=== PATIENT | female | born 1965 | race Caucasian/White ===

== ENCOUNTER 2018-04-27 17:30 | Emergency (ER) | payer SELFPAY ==
--- OUTSIDE RECORDS SUMMARY | 2018-04-27 17:32 | XMS REPORT | Clinical Summary ---
:1965 Author Organization [facility] Address [address] [place] [address] Care Team Providers Name Role Phone Asked, No Pcp Primary Care Provider Unavailable Allergies Active Allergy Reactions Severity Noted Date Comments Codeine 06/13/2017 Current Medications Prescription Sig. Disp. Refills Start Date End Date Status amlodipine-benazepril Take 1 capsule by Active (LOTREL 5-10) 5-10 mg per mouth daily. capsule Active Problems Not on file Encounters Date Type Specialty Care Team Description 06/13/2017 Emergency Emergency Medicine Moise David Chest pain as MD Jez manifestation of blood transfusion reaction (Primary Dx) after 04/26/2017 Social History Tobacco Use Types Packs/Day Years Used Date Current Every Day Smoker Cigarettes 1 Alcohol Use Drinks/Week oz/Week Comments Yes social Sex Assigned at Date Recorded Not on file Last Filed Vital Signs Vital Sign Reading Time Taken Blood Pressure 109/56 06/13/2017 5:00 PM CDT Pulse 54 06/13/2017 5:00 PM CDT Temperature 36.6 C (97.9 F) 06/13/2017 5:00 PM CDT Respiratory Rate 15 06/13/2017 5:00 PM CDT Oxygen Saturation 99% 06/13/2017 5:00 PM CDT Inhaled Oxygen Concentration - - Weight - - Height 172.7 cm (5' 8") 06/13/2017 11:18 AM CDT Body Mass Index - - Plan of Treatment Health Maintenance Due Date Last Done Comments CERVICAL CANCER SCREENING 02/28/1988 BREAST CANCER SCREENING 2017 COLON CANCER SCREENING 2017 SHINGRIX VACCINE (#1) 2017 INFLUENZA VACCINE 04/10/2018 Procedures Procedure Name Priority Date/Time Associated Comments Diagnosis TROPONIN Timed 06/13/2017 3:01 Results for this PM CDT procedure are in the results section. XR CHEST 2 VW STAT 06/13/2017 12:20 Results for this PM CDT procedure are in the results section. ESTIMATED GFR STAT 06/13/2017 11:33 Results for this AM CDT procedure are in the results section. B NATRIURETIC PEPTIDE STAT 06/13/2017 11:33 Results for this AM CDT procedure are in the results section. TROPONIN STAT 06/13/2017 11:33 Results for this AM CDT procedure are in the results section. COMPREHENSIVE METABOLIC STAT 06/13/2017 11:33 Results for this PANEL AM CDT procedure are in the results section. PARTIAL THROMBOPLASTIN STAT 06/13/2017 11:33 Results for this TIME (PTT) AM CDT procedure are in the results section. PROTHROMBIN TIME WITH STAT 06/13/2017 11:33 Results for this INR AM CDT procedure are in the results section. HC COMPLETE BLD COUNT STAT 06/13/2017 11:33 Results for this W/AUTO DIFF AM CDT procedure are in the results section. ECG 12-LEAD STAT 06/13/2017 11:20 Results for this AM CDT procedure are in the results section. after 04/26/2017 Results Troponin (06/13/2017 3:01 PM)Only the most recent of2 resultswithin the time period is included. Troponin <0.300 0.000 - 0.300 ng/mL [facility] DEPARTMENT OF Comment: PATHOLOGY AND GENOMIC The diagnostic value of a single normal or non-diagnostic MEDICINE result is questionable.Serial samples at 2-6 hour intervals are required to rule out acute myocardial injury. Specimen Plasma specimen Performing Organization Address City/State/Zipcode Phone Number [facility] DEPARTMENT OF PATHOLOGY AND [address] [facility]. [address] [place] [address] GENOMIC MEDICINE XR Chest 2 Vw (06/13/2017 12:20 PM) Narrative Performed At EXAMINATION:XR CHEST 2 VW [facility] CLINICAL HISTORY:Chest Pain, Chest pain COMPARISON:None. IMPRESSION: Frontal and lateral views reveal a normal cardiomediastinal silhouette. Coarse interstitial markings are noted throughout the lungs although without a consolidative process. Pleural margins are sharp. [facility]-[id number] Procedure Note Hm Interface, Radiology Results Incoming - 06/13/2017 12:27 PM CDT EXAMINATION: XR CHEST 2 VW CLINICAL HISTORY: Chest Pain, Chest pain COMPARISON: None. IMPRESSION: Frontal and lateral views reveal a normal cardiomediastinal silhouette. Coarse interstitial markings are noted throughout the lungs although without a consolidative process. Pleural margins are sharp. [facility]-[id number] Performing Organization Address City/[facility]/Zipcode Phone Number [facility] [place] [address] [place] [address] Estimated GFR (06/13/2017 11:33 AM) GFR Non Af Amer 76 mL/min/1.73 m2 [facility] DEPARTMENT OF PATHOLOGY AND [employer] [facility] MEDICINE GFR Af Amer >90 mL/min/1.73 m2 [facility] DEPARTMENT OF Comment: PATHOLOGY AND [employer] [facility] [employer] Chronic kidney disease: <60 mL/min/1.73m2 MEDICINE Kidney failure: <15 mL/min/1.73m2 The estimated GFR is calculated from the IDMS-traceable Modification of Diet in Renal Disease Equation. The accuracy of the calculation is poor when the creatinine is normal. Calculated values >90 mL/min/1.73m2 are not reported. This equation has not been validated in children (<18 years), women, the elderly (>70 years), or ethnic groups other than Caucasians and Americans. Specimen Plasma specimen Performing Organization Address [facility] [email or web address] Phone Number [facility] PATHOLOGY AND [address] [place] [address]. [address] [place] [address] [facility] Partial thromboplastin time, activated (06/13/2017 11:33 AM) PTT 28.2 23.0 - 36.0 sec [facility] DEPARTMENT OF Comment: PATHOLOGY AND [employer] [facility] [employer] PTT therapeutic range for unfractionated heparin is MEDICINE 66.0-112.0 seconds which corresponds to Anti-Xa 0.3-0.7 U/mL. The reference range has changed starting 02/08/2010 @12:00pm Specimen Blood Performing Organization Address [facility] [[email or web address] Phone Number [facility] PATHOLOGY AND [address] [place], [place] [address]y. [address] [place] [address] [facility] Prothrombin time with INR (06/13/2017 11:33 AM) Prothrombin time 13.0 12.0 - 15.0 sec [facility] DEPARTMENT OF PATHOLOGY AND [employer] [facility] [employer] MEDICINE INR 1.0 [facility] DEPARTMENT OF Comment: PATHOLOGY AND GENOMIC The International Normalized Ratio (INR) is a therapeutic MEDICINE monitoring tool for patients who are stable on oral anticoagulant therapy. An INR of 2.0-3.0 is suggested for deep vein thrombosis/pulmonary embolism. Specimen Blood Performing Organization Address City/[facility]/Zipcode Phone Number [facility] DEPARTMENT OF PATHOLOGY AND [address] [facility] [address] [place] [id number] [employer] [facility] CBC with platelet and differential (06/13/2017 11:33 AM) WBC 10.9 4.5 - 11.0 k/uL [facility] DEPARTMENT OF PATHOLOGY AND GENOMIC MEDICINE RBC 4.83 4.20 - 5.50 M/uL [facility] DEPARTMENT OF PATHOLOGY AND GENOMIC MEDICINE HGB 16.1 14.0 - 18.0 g/dL [facility] DEPARTMENT OF PATHOLOGY AND GENOMIC MEDICINE HCT 45.6 37.0 - 47.0 % [facility] DEPARTMENT OF PATHOLOGY AND GENOMIC MEDICINE MCV 94.4 82.0 - 100.0 fL [facility] DEPARTMENT OF PATHOLOGY AND GENOMIC MEDICINE MCH 33.3 27.0 - 34.0 pg [facility] DEPARTMENT OF PATHOLOGY AND GENOMIC MEDICINE MCHC 35.3 31.0 - 37.0 g/dL [facility] DEPARTMENT OF PATHOLOGY AND GENOMIC MEDICINE RDW - SD 43.4 37.0 - 55.0 fL [facility] DEPARTMENT OF PATHOLOGY AND GENOMIC MEDICINE MPV 9.9 8.8 - 13.2 fL [facility] DEPARTMENT OF PATHOLOGY AND GENOMIC MEDICINE Platelet count 241 150 - 400 K/uL [facility] DEPARTMENT OF PATHOLOGY AND GENOMIC MEDICINE Nucleated RBC 0.00 /100 WBC [facility] DEPARTMENT OF PATHOLOGY AND GENOMIC MEDICINE Neutrophils 56.3 39.0 - 69.0 % [facility] DEPARTMENT OF PATHOLOGY AND GENOMIC MEDICINE Lymphocytes 35.5 25.0 - 45.0 % [facility] DEPARTMENT OF PATHOLOGY AND GENOMIC MEDICINE Monocytes 6.1 0.0 - 10.0 % [facility] DEPARTMENT OF PATHOLOGY AND GENOMIC MEDICINE Eosinophils 1.2 0.0 - 5.0 % [facility] DEPARTMENT OF PATHOLOGY AND GENOMIC MEDICINE Basophils 0.5 0.0 - 1.0 % [facility] DEPARTMENT OF PATHOLOGY AND GENOMIC MEDICINE Immature granulocytes 0.4Comment: "Immature 0.0 - 1.0 % [facility] DEPARTMENT OF granulocytes" PATHOLOGY AND GENOMIC (promyelocytes, MEDICINE myelocytes, metamyelocytes) Specimen Blood Performing Organization Address City/[facility]/Zipcode Phone Number [facility] DEPARTMENT OF PATHOLOGY AND [address] [facility] [address] [place] [address] [employer] [facility] [employer] [facility] B natriuretic peptide (06/13/2017 11:33 AM) BNP 28 0 - 100 pg/mL [facility] DEPARTMENT OF PATHOLOGY AND GENOMIC MEDICINE Specimen Blood Performing Organization Address City/[facility]/Zipcode Phone Number [facility] DEPARTMENT OF PATHOLOGY AND [address] [facility]. [address] [place] [address] [facility] Comprehensive metabolic panel (06/13/2017 11:33 AM) Sodium 138 135 - 148 mEq/L [facility] DEPARTMENT OF PATHOLOGY AND GENOMIC MEDICINE Potassium 4.4 3.5 - 5.0 mEq/L [facility] DEPARTMENT OF PATHOLOGY AND GENOMIC MEDICINE Chloride 100 99 - 109 mEq/L [facility] DEPARTMENT OF PATHOLOGY AND GENOMIC MEDICINE CO2 22 (L) 24 - 31 mEq/L [facility] DEPARTMENT OF PATHOLOGY AND GENOMIC MEDICINE Anion gap 16 (H) 7 - 15 mEq/L [facility] DEPARTMENT OF Comment: PATHOLOGY AND GENOMIC Starting from December , anion gap calculation MEDICINE no longer incorporates potassium. Please note the change. BUN 13 8 - 24 mg/dL [facility] DEPARTMENT OF PATHOLOGY AND GENOMIC MEDICINE Creatinine 0.8 0.5 - 1.5 mg/dL [facility] DEPARTMENT OF PATHOLOGY AND GENOMIC MEDICINE Glucose 98 65 - 99 mg/dL [facility] DEPARTMENT OF PATHOLOGY AND GENOMIC MEDICINE Calcium 9.7 8.6 - 10.6 mg/dL [facility] DEPARTMENT OF PATHOLOGY AND GENOMIC MEDICINE Protein 8.0 6.3 - 8.2 g/dL [facility] DEPARTMENT OF PATHOLOGY AND GENOMIC MEDICINE Albumin 4.8 3.5 - 5.0 g/dL [facility] DEPARTMENT OF PATHOLOGY AND GENOMIC MEDICINE A/G ratio 1.50 0.70 - 3.80 [facility] DEPARTMENT OF PATHOLOGY AND GENOMIC MEDICINE Alkaline phosphatase 102 30 - 115 U/L [facility] DEPARTMENT OF PATHOLOGY AND GENOMIC MEDICINE AST 34 15 - 46 U/L [facility] DEPARTMENT OF PATHOLOGY AND GENOMIC MEDICINE ALT 26 10 - 55 U/L [facility] DEPARTMENT OF PATHOLOGY AND GENOMIC MEDICINE Total bilirubin 0.6 0.2 - 1.2 mg/dL [facility] DEPARTMENT OF PATHOLOGY AND GENOMIC MEDICINE Specimen Plasma specimen Performing Organization Address City/[facility]/Zipcode Phone Number [facility] PATHOLOGY AND [id number] [place], [place] [address]y. [address] [place] [address] [facility] ECG 12 lead (06/13/2017 11:20 AM) Ventricular rate 75 [facility] Atrial rate 75 [facility] IN interval 128 [facility] QRSD interval 82 [facility] QT interval 390 [facility] QTC interval 435 [facility] P axis 1 57 [facility] QRS axis 1 72 [facility] T wave axis 51 [facility] EKG impression Normal sinus rhythm-Normal [facility] ECG-- Performing Organization Address City/State/Zipcode Phone Number [facility] [address] [place] [address] after 04/26/2017 Insurance Payer Benefit Plan / Group Subscriber ID Type Phone Address [employer]ET[employer] AET[employer] PPO OPEN CHOICE xxxxxxxxxx PPO Home: [id number] [place] [id number]
[2018-04-27] MEDS ORDERED: HYDROCODONE/APAP 7.5/325 MG TAB ONE (17:54)
[2018-04-27] MEDS ORDERED: TETANUS & DIPHTHERIA TOX,ADULT 0.5 ML VIAL ONE (17:54)
[2018-04-27] MEDS ORDERED: DOXYCYCLINE 100 MG CAP PO ONE (17:54)
--- NOTE | 2018-04-27 18:40 | EDPHYS ---
Physician Documentation [facility] Name: Eladia Morelos Age: 53 yrs Sex: Female : 1965 Arrival Date: 04/27/2018 Time: 17:34 Bed 14 Private MD: None, None ED Physician Jas Ku HPI: 04/27 17:50 This 53 yrs old Female presents to ER via Ambulatory with complaints of Foot snw Pain. 17:50 The patient presents with pain, that is acute. The complaints affect the medial aspect snw of right foot. Context: [place] resulted from an unknown cause, the patient can fully bear weight, the patient is able to ambulate, Problem is a result from a previous injury: No. Onset: The symptoms/episode began/occurred suddenly, just prior to arrival. Associated signs and symptoms: Pertinent positives: severe burning and pain. Severity of symptoms: At their worst the symptoms were moderate, severe. The patient has not experienced similar symptoms in the past. 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 - Social history:: Smoking status: Patient uses tobacco products, smokes one pack cigarettes per day. - Ebola Screening: : Patient negative for fever greater than or equal to 101.5 degrees Fahrenheit, and additional compatible Ebola Virus Disease symptoms Patient denies exposure to infectious person Patient denies travel to an Ebola-affected area in the 21 days before illness onset No symptoms or risks identified at this time. ROS: 17:48 Constitutional: Negative for fever, chills, and weight loss, Eyes: Negative for injury, snw pain, redness, and discharge, ENT: Negative for injury, pain, and discharge, Neck: Negative for injury, pain, and swelling, Cardiovascular: Negative for chest pain, palpitations, and edema, Respiratory: Negative for shortness of breath, cough, wheezing, and pleuritic chest pain, Abdomen/GI: Negative for abdominal pain, nausea, vomiting, diarrhea, and constipation, Back: Negative for injury and pain, : Negative for injury, bleeding, discharge, and swelling, MS/Extremity: Negative for injury and deformity, Neuro: Negative for headache, weakness, numbness, tingling, and seizure, Psych: Negative for depression, anxiety, suicide ideation, homicidal ideation, and hallucinations. 17:48 Skin: Positive for puncture, swelling, pain to right foot suddenly while walking in the water at the beach. Exam: 17:48 Constitutional: This is a well developed, well nourished patient who is awake, alert, snw and in no acute distress. Head/Face: Normocephalic, atraumatic. Eyes: Pupils equal round and reactive to light, extra-ocular motions intact. Lids and lashes normal. Conjunctiva and sclera are non-icteric and not injected. Cornea within normal limits. Periorbital areas with no swelling, redness, or edema. ENT: Nares patent. No nasal discharge, no septal abnormalities noted. Tympanic membranes are normal and external auditory canals are clear. Oropharynx with no redness, swelling, or masses, exudates, or evidence of obstruction, uvula midline. Mucous membranes moist. Neck: Trachea midline, no thyromegaly or masses palpated, and no cervical lymphadenopathy. Supple, full range of motion without nuchal rigidity, or vertebral point tenderness. No Meningismus. Chest/axilla: Normal chest wall appearance and motion. Nontender with no deformity. No lesions are appreciated. Cardiovascular: Regular rate and rhythm with a normal S1 and S2. No gallops, murmurs, or rubs. Normal PMI, no JVD. No pulse deficits. Respiratory: Lungs have equal breath sounds bilaterally, clear to auscultation and percussion. No rales, rhonchi or wheezes noted. No increased work of breathing, no retractions or nasal flaring. Abdomen/GI: Soft, non-tender, with normal bowel sounds. No distension or tympany. No guarding or rebound. No evidence of tenderness throughout. Back: No spinal tenderness. No costovertebral tenderness. Full range of motion. MS/ Extremity: Pulses equal, no cyanosis. Neurovascular intact. Full, normal range of motion. Neuro: Awake and alert, GCS 15, oriented to person, place, time, and situation. Cranial nerves II-XII grossly intact. Motor strength 5/5 in all extremities. Sensory grossly intact. Cerebellar exam normal. Normal gait. Psych: Awake, alert, with orientation to person, place and time. Behavior, mood, and affect are within normal limits. 17:48 Skin: Appearance: normal except for affected area, injury, puncture(s), that are deep, of the medial aspect of right heel. Vital Signs: 17:41 BP 159 / 99; Pulse 87; Resp 17; Temp 97.7; Pulse Ox 98% on R/A; Weight 65.77 kg; Height aj 5 ft. 8 in. (172.72 cm); 19:00 BP 146 / 96; Pulse 72; Resp 18; Pulse Ox 99% on R/A; tl3 17:41 Body Mass Index 22.05 (65.77 kg, 172.72 cm) MDM: 17:51 Patient medically screened. snw 18:40 Data reviewed: vital signs, nurses notes. Data interpreted: Pulse oximetry: on room air snw is 98 %. Interpretation: normal. Counseling: I had a detailed discussion with the patient and/or guardian regarding: the historical points, exam findings, and any diagnostic results supporting the discharge/admit diagnosis, the presence of at least one elevated blood pressure reading (>120/80) during this emergency department visit, radiology results, the need for outpatient follow up, to return to the emergency department if symptoms worsen or persist or if there are any questions or concerns that arise at home. Special discussion: I have referred the patient to see his PCP for further evaluation of high blood pressure. Based on the history and exam findings, there is no indication for further emergent testing or inpatient evaluation. I discussed with the patient/guardian the need to see the primary care provider for further evaluation of the symptoms. 04/27 17:44 Order name: Foot Right 3 View XRAY 04/27 17:44 Order name: Misc. Order: hot water to foot; Complete Time: 17:46 snw Administered Medications: 17:50 Drug: Doxycycline 100 mg Route: PO; tl3 19:01 Follow up: Response: No adverse reaction tl3 18:06 Drug: Tetanus-Diphtheria Toxoid Adult 0.5 ml {Double Bass Player: [employer] ([employer]). Exp: tl3 05/09/2020. Lot #: [id number]. } Route: IM; Site: right deltoid; 19:01 Follow up: Response: No adverse reaction tl3 18:07 CANCELLED (Duplicate Order): Wheeler (7.5 mg-325 mg) 1 tabs PO once tl3 18:08 Drug: Wheeler (7.5 mg-325 mg) 1 tabs Route: PO; tl3 19:01 Follow up: Response: No adverse reaction tl3 Disposition: 04/27/18 18:39 Discharged to Home. Impression: Contact with other nonvenomous marine animals, Puncture wound without foreign body of foot. - Condition is Stable. - Discharge Instructions: Marine Life Injury, Hypertension, Puncture Wound, VIS, Tetanus, Diphtheria (Td) - FOR[facility] NAMED [facility], Wound Care. - Prescriptions for Doxycycline Hyclate 100 mg Oral Tablet - take 1 tablet by ORAL route every 12 hours; 20 tablet. Diclofenac Sodium 75 mg Oral Tablet Sustained Release - take 1 tablet by ORAL route 2 times per day; 30 tablet. - Medication Reconciliation Form, Thank You Letter, Antibiotic Education, Prescription Opioid Use form. - Follow up: Private Physician; When: 2 - 3 days; Reason: Recheck today's complaints, Continuance of care, Re-evaluation by your physician. Follow up: Emergency Department; When: As needed; Reason: Worsening of condition. Signatures: Dispatcher [employer] Crystal Contreras RN RN aj Therrien, Shelly, YOUTH DEVELOPMENT SPECIALIST-C YOUTH DEVELOPMENT SPECIALIST-Genesisw Trixie Nunn RN RN tl3 Corrections: (The following items were deleted from the chart) 18:07 18:07 Wheeler (7.5 mg-325 mg) 1 tabs PO once ordered. tl3 tl3 19:03 18:39 04/27/2018 18:39 Discharged to Home. Impression: Contact with other nonvenomous tl3 marine animals; Puncture wound without foreign body of foot. Condition is Stable. Forms are Medication Reconciliation Form, Thank You Letter, Antibiotic Education, Prescription Opioid Use. Follow up: Private Physician; When: 2 - 3 days; Reason: Recheck today's complaints, Continuance of care, Re-evaluation by your physician. Follow up: Emergency Department; When: As needed; Reason: Worsening of condition. snw
--- NOTE | 2018-04-27 18:40 | ER ---
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 Transition of care: patient was not received from another setting of care. Onset of symptoms was April 27, 2018. Risk Assessment: Do you want to hurt yourself or someone else? Patient reports no desire to harm self or others. Initial Sepsis Screen: Does the patient meet any 2 criteria? No. Patient's initial sepsis screen is negative. Does the patient have a suspected source of infection? No. Patient's initial sepsis screen is negative. Care prior to arrival: None. 17:40 Method Of Arrival: Ambulatory 17:40 Acuity: LAN 4 Triage Assessment: 17:41 General: Appears in no apparent distress. uncomfortable, Behavior is calm, cooperative, aj appropriate for age. Pain: Complains of pain in medial aspect of right heel. Neuro: Level of Consciousness is awake, alert, obeys commands, Oriented to person, place, time, situation, Appropriate for age. Respiratory: Airway is patent Respiratory effort is even, unlabored, Respiratory pattern is regular, symmetrical. Derm: Skin is intact, is healthy with good turgor, Skin is pink, warm \T\ dry. normal. Injury Description: Puncture sustained to medial aspect of right heel is superficial. 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 - Social history:: Smoking status: Patient uses tobacco products, smokes one pack cigarettes per day. - Ebola Screening: : Patient negative for fever greater than or equal to 101.5 degrees Fahrenheit, and additional compatible Ebola Virus Disease symptoms Patient denies exposure to infectious person Patient denies travel to an Ebola-affected area in the 21 days before illness onset No symptoms or risks identified at this time. Screenin:40 Abuse screen: Denies threats or abuse. Nutritional screening: No deficits noted. tl3 Tuberculosis screening: No symptoms or risk factors identified. Fall Risk None identified. Assessment: 17:40 General: Appears distressed, uncomfortable, slender, well groomed, well developed, well tl3 nourished, Behavior is cooperative, appropriate for age, anxious. Pain: Complains of pain in right foot Pain currently is 10 out of 10 on a pain scale. Neuro: Level of Consciousness is awake, alert, obeys commands, Oriented to person, place, time, situation, Appropriate for age. Cardiovascular: Patient's skin is warm and dry. Respiratory: Airway is patent Respiratory effort is even, unlabored, Respiratory pattern is regular, symmetrical. GI: No signs and/or symptoms were reported involving the gastrointestinal system. : No signs and/or symptoms were reported regarding the genitourinary system. EENT: No signs and/or symptoms were reported regarding the EENT system. Derm: No signs and/or symptoms reported regarding the dermatologic system. Musculoskeletal: was stung by a sting ray ravinder at the beach. Vital Signs: 17:41 BP 159 / 99; Pulse 87; Resp 17; Temp 97.7; Pulse Ox 98% on R/A; Weight 65.77 kg; Height aj 5 ft. 8 in. (172.72 cm); 19:00 BP 146 / 96; Pulse 72; Resp 18; Pulse Ox 99% on R/A; tl3 17:41 Body Mass Index 22.05 (65.77 kg, 172.72 cm) ED Course: 17:34 Patient arrived in ED. mr 17:34 None, None is Private Physician. mr 17:40 Patient has correct armband on for positive identification. tub of hot water prepared tl3 for right foot. 17:40 No provider procedures requiring assistance completed. Patient did not have IV access tl3 during this emergency room visit. 17:41 Triage completed. aj 17:41 Gaby Garcia FNP-C [facility]. snw 17:41 Jas Ku MD is Attending Physician. snw 17:41 Arm band placed on left wrist. Patient placed in an exam room. aj 17:46 Chilcoot-Vinton, Trixie, RN is Primary Nurse. tl3 18:14 X-ray completed. Portable x-ray completed in exam room. Patient tolerated procedure la2 well. 18:39 Foot Right 3 View XRAY In Process Unspecified. 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 Exp: tl3 05/09/2020. Lot #: [id number]. } Route: IM; Site: right deltoid; 19:01 Follow up: Response: No adverse reaction tl3 18:07 CANCELLED (Duplicate Order): [place] (7.5 mg-325 mg) 1 tabs PO once tl3 18:08 Drug: [place] (7.5 mg-325 mg) 1 tabs Route: PO; tl3 19:01 Follow up: Response: No adverse reaction tl3 Outcome: 18:39 Discharge ordered by MD. see 19:02 Discharged to tl3 19:02 Condition: good 19:02 Discharge instructions given to patient, family, Instructed on discharge instructions, follow up and referral plans. medication usage, Demonstrated understanding of instructions, follow-up care, medications, Prescriptions given X 1. 19:03 Patient left the ED. tl3 Signatures: Dispatcher [employer] EDMS Crystal Martinez, RN RN Gaby Rahman, PLATING FOREMAN-C PLATING FOREMAN-Deena Suazo Roel Redmanlie la2 Trixie Nunn, RN RN tl3
--- NOTE | 2018-04-27 20:00 | RAD REPORT ---
EXAM DESCRIPTION: RAD - Foot Right 3 View - 04/27/2018 6:38 pm CLINICAL HISTORY: Right foot pain status post injury FINDINGS: No fracture or dislocation is seen
== END 2018-04-27 19:03 | disposition home or self-care (01) ==
LOC: ER 17:30
DX: S91.331A Puncture wound without foreign body, right foot, initial encounter (principal); W56.39XA Other contact with other marine mammals, initial encounter; Y93.01 Activity, walking, marching and hiking; Y92.832 Beach as the place of occurrence of the external cause; Z88.5 Allergy status to narcotic agent; F17.210 Nicotine dependence, cigarettes, uncomplicated; Z23 Encounter for immunization
CPT/HCPCS: 90714; 99283